=== PATIENT | female | born 1970 | race African-American/Black ===

== ENCOUNTER 2022-02-21 13:35 | Inpatient (IN) ==
[2022-02-21 14:36] LABS: Albumin 3.1 G/DL (3.4-5.0); Bilirubin,Total 0.8 MG/DL (0.20-1.00); Calcium 8.5 MG/DL (8.5-10.1); Osmolality,Calculated 287.7 MOS/KG (273-304); Potassium 4.2 MMOL/L (3.5-5.1); Total Protein 6.8 G/DL (6.4-8.2)
[2022-02-21 14:44] LABS: Basophils % 0.6 % (0.0-0.8); Eosinophils # 0.3 10*3/uL (0.0-0.87); Eosinophils % 4.4 % (0.00-10.9); Hematocrit 29.4 VOL% (35.7-47.0); Hemoglobin 8.2 GM/DL (12.0-16.0); Immature Granulocytes % 0.1 %; Immature Granulocytes Absolute 0.01 #; Lymphocytes # 2.5 10*3/uL (1.4-4.0); Lymphocytes % 35.1 % (21.3-54.2); Mean Corpuscular HGB Conc 27.9 GM/DL (32-36); Mean Corpuscular Volume 68.1 FL (87-102); Mean Platelet Volume 10.6 FL (9.6-12.0); NRBC # 0.02 10*3/uL; Neutrophils % 45.8 % (38.7-73.9); Platelet Count 299 T/CUMM (130-400); Red Blood Count 4.32 MC/CUMM (3.8-5.5); Red Cell Distribution Width 20.7 % (9.3-17.3); White Blood Count 7.1 T/CUMM (4-12)
[2022-02-21 16:15] LABS: Ovalocytes Slight; Polychromasia Slight; Target Cells Slight
[2022-02-21 16:16] LABS: Hypochromia 1+; Platelet Estimate Normal
[2022-02-21 16:17] LABS: Microcytosis 1+
[2022-02-21] MEDS ORDERED: cefTRIAXone 1,000 MG in SODIUM CHLORIDE 0.9% 100 ML IV STA (16:55)
[2022-02-21 17:52] LABS: Thyroid Stimulating Hormone 1.4 uIU/ml (0.358-3.74)
[2022-02-21] MEDS ORDERED: FUROSEMIDE 40 MG/4 ML VIAL IV STA (19:15)
[2022-02-21] MEDS ORDERED: hydrALAZINE 20 MG/1 ML VIAL IV STA (19:15)
[2022-02-21] MEDS ORDERED: MORPHINE 2 MG/1 ML SYRINGE IV PRN (19:58)
[2022-02-21] MEDS ORDERED: NICOTINE 21 MG/24 HR PATCH TRANSDERM PRN (19:58)
[2022-02-21] MEDS ORDERED: ONDANSETRON 4 MG/2 ML VIAL IV PRN (19:58)
[2022-02-21] MEDS ORDERED: guaiFENesin 200 MG/10 ML UDCUP PO PRN (20:03)
[2022-02-21] MEDS ORDERED: carvediloL 6.25 MG TABLET PO SCH (21:00)
[2022-02-21] MEDS ORDERED: LOSARTAN 25 MG TABLET PO SCH (21:00)
[2022-02-21 21:21] LABS: Bilirubin,Urine Negative (Negative); Blood, Urine Large mg/dL (Negative); Glucose,Urine (UA) Negative (Negative); Ketones,Urine Negative (Negative); Nitrite,Urine Negative (Negative); Protein,Urine Negative (Negative); RBC,Urine 192 /HPF (0-4); Squamous Epithelial Cell,Urine Occasional /HPF (0-10); Urine Appearance Slightly Hazy (Clear); Urine Color Straw (Yellow); Urine Specific Gravity 1.013 (1.001-1.035); Urine Urobilinogen < 2.0 eU/dL (<2.0)
[2022-02-21 21:39] LABS: Hepatitis B Core IgM Quant 0.13 Index; Hepatitis B Surface Ag Quant < 0.10 Index; Hepatitis B Surface Ag Result Non-Reactive (NonReactive); Hepatitis C Virus Ab Quant 0.05 Index; Hepatitis C Virus Ab Result Non-Reactive (NonReactive)
[2022-02-21] MEDS ORDERED: LEVALBUTEROL 0.63 MG/3 ML NEB RESP TX ONE (21:56)
[2022-02-21] MEDS: LEVALBUTEROL 0.31 MG/3 ML NEB RESP TX SCH (22:00)
[2022-02-21] MEDS: carvediloL 6.25 MG TABLET PO SCH (22:45)
[2022-02-21] MEDS: LOSARTAN 25 MG TABLET PO SCH (22:45)
[2022-02-21] MEDS: AZITHROMYCIN INJ 500 MG in SODIUM CHLORIDE 0.9% 250 ML IV SCH (23:55)
[2022-02-22] MEDS ORDERED: LEVALBUTEROL 0.63 MG/3 ML NEB RESP TX ONE (04:11)
[2022-02-22] MEDS: LEVALBUTEROL 0.31 MG/3 ML NEB RESP TX SCH ×6 (04:12→23:23)
[2022-02-22 05:12] LABS: % Iron Saturation 2.6 % (18-50)
[2022-02-22 05:16] LABS: Albumin 3.2 G/DL (3.4-5.0); Bilirubin,Total 0.8 MG/DL (0.20-1.00); Calcium 8.5 MG/DL (8.5-10.1); Osmolality,Calculated 285.8 MOS/KG (273-304); Potassium 3.5 MMOL/L (3.5-5.1); Risk Ratio 3.14; Total Protein 7.1 G/DL (6.4-8.2); VLDL Cholesterol 16.4 MG/DL
[2022-02-22 05:18] LABS: Folate 10.47 NG/ML (5.38-24.0)
[2022-02-22 05:27] LABS: Basophils # 0.1 10*3/uL (0.0-0.2); Basophils % 0.8 % (0.0-0.8); Eosinophils # 0.2 10*3/uL (0.0-0.87); Eosinophils % 2.6 % (0.00-10.9); Hematocrit 28.5 VOL% (35.7-47.0); Hemoglobin 8.1 GM/DL (12.0-16.0); Immature Granulocytes % 0.3 %; Immature Granulocytes Absolute 0.02 #; Lymphocytes % 27.5 % (21.3-54.2); Mean Corpuscular HGB Conc 28.4 GM/DL (32-36); Mean Corpuscular Volume 66.6 FL (87-102); Mean Platelet Volume 10.8 FL (9.6-12.0); Monocytes # 1.1 10*3/uL (0.11-0.8); Monocytes % 14.6 % (1.7-12.7); Neutrophils % 54.2 % (38.7-73.9); Platelet Count 318 T/CUMM (130-400); Red Blood Count 4.28 MC/CUMM (3.8-5.5); Red Cell Distribution Width 20.7 % (9.3-17.3); White Blood Count 7.3 T/CUMM (4-12)
[2022-02-22 05:41] LABS: Eosinophils 4 % (0-10); Hypochromia Slight; Lymphocytes 27 % (20-55); Microcytosis Slight; Platelet Estimate Adequate; Total Cells Counted 100
[2022-02-22] MEDS ORDERED: ERGOCALCIFEROL 50,000 UNIT CAPSULE PO SCH (08:30)
[2022-02-22] MEDS: FUROSEMIDE 40 MG/4 ML VIAL IV SCH ×2 (08:52→16:02)
[2022-02-22] MEDS: ASPIRIN CHEW 81 MG TABLET PO SCH (08:53)
[2022-02-22] MEDS: LOSARTAN 25 MG TABLET PO SCH ×2 (08:53→21:20)
[2022-02-22] MEDS: carvediloL 6.25 MG TABLET PO SCH ×2 (08:53→21:20)
[2022-02-22] MEDS: PANTOPRAZOLE 40 MG TABLET PO SCH (08:54)
[2022-02-22] MEDS: FERRIC GLUCONATE COMPLEX 125 MG in SODIUM CHLORIDE 0.9% 100 ML IV SCH (08:54)
[2022-02-22] MEDS ORDERED: DEXTROSE 10% 250 ML BAG IV PRN (08:55)
[2022-02-22] MEDS ORDERED: GLUCAGON 1 MG VIAL IM PRN (08:55)
[2022-02-22] MEDS ORDERED: INFLUENZA VIRUS VACCINE 0.5 ML SYRINGE IM ONE (11:06)
[2022-02-22] MEDS ORDERED: MAGNESIUM SULF RIDER 2 GM/50 ML PREMIX IV ONE (11:08)
[2022-02-22] MEDS ORDERED: POTASSIUM CHLORIDE 20 MEQ TABLET PO ONE (11:08)
[2022-02-22 11:55] LABS: Barbiturates Screen,Urine Negative (Negative); Benzodiazepines Screen,Urine Negative (Negative); Cannabinoid Screen,Urine Negative (Negative); Opiate Screen,Urine Negative (Negative); Phencyclidine Screen,Urine Negative (Negative)
[2022-02-22] MEDS ORDERED: MAGNESIUM SULF RIDER 2 GM/50 ML PREMIX IV PRN (14:53)
[2022-02-22] MEDS ORDERED: POTASSIUM CHLORIDE RIDER 10 MEQ/100 ML PREMIX IV PRN (14:53)
[2022-02-22] MEDS: AZITHROMYCIN INJ 500 MG in SODIUM CHLORIDE 0.9% 250 ML IV SCH (21:21)
[2022-02-23] MEDS: LEVALBUTEROL 0.31 MG/3 ML NEB RESP TX SCH ×7 (00:42→23:21)
[2022-02-23 05:42] LABS: Calcium 8.8 MG/DL (8.5-10.1); Osmolality,Calculated 289.7 MOS/KG (273-304); Potassium 3.9 MMOL/L (3.5-5.1)
[2022-02-23 05:48] LABS: Basophils # 0.1 10*3/uL (0.0-0.2); Basophils % 0.9 % (0.0-0.8); Bilirubin,Total 0.7 MG/DL (0.20-1.00); Calcium 8.9 MG/DL (8.5-10.1); Eosinophils # 0.4 10*3/uL (0.0-0.87); Eosinophils % 5.1 % (0.00-10.9); Hemoglobin 8.1 GM/DL (12.0-16.0); Immature Granulocytes % 0.4 %; Immature Granulocytes Absolute 0.03 #; Lymphocytes # 2.1 10*3/uL (1.4-4.0); Lymphocytes % 30.8 % (21.3-54.2); Mean Corpuscular HGB Conc 28.4 GM/DL (32-36); Mean Corpuscular Volume 66.7 FL (87-102); Mean Platelet Volume 10.7 FL (9.6-12.0); Monocytes # 1.1 10*3/uL (0.11-0.8); Monocytes % 15.3 % (1.7-12.7); Neutrophils % 47.5 % (38.7-73.9); Osmolality,Calculated 290.6 MOS/KG (273-304); Platelet Count 320 T/CUMM (130-400); Potassium 3.8 MMOL/L (3.5-5.1); Red Blood Count 4.27 MC/CUMM (3.8-5.5); Red Cell Distribution Width 20.9 % (9.3-17.3); Total Protein 6.8 G/DL (6.4-8.2); White Blood Count 6.9 T/CUMM (4-12)
[2022-02-23 05:50] LABS: Hematocrit 28.5 VOL% (35.7-47.0)
[2022-02-23] MEDS: ASPIRIN CHEW 81 MG TABLET PO SCH (08:25)
[2022-02-23] MEDS: carvediloL 6.25 MG TABLET PO SCH ×2 (08:25→22:28)
[2022-02-23] MEDS: SPIRONOLACTONE 25 MG TABLET PO SCH (08:25)
[2022-02-23] MEDS: FUROSEMIDE 40 MG/4 ML VIAL IV SCH ×2 (08:25→18:05)
[2022-02-23] MEDS: LOSARTAN 25 MG TABLET PO SCH ×2 (08:25→22:28)
[2022-02-23] MEDS: PANTOPRAZOLE 40 MG TABLET PO SCH (08:25)
[2022-02-23] MEDS: FERRIC GLUCONATE COMPLEX 125 MG in SODIUM CHLORIDE 0.9% 100 ML IV SCH (08:38)
[2022-02-23] MEDS ORDERED: diphenhydrAMINE CAP 50 MG CAPSULE PO ONE (10:30)
[2022-02-23] MEDS ORDERED: DIAZEPAM 5 MG TABLET PO ONE (10:30)
[2022-02-23] MEDS ORDERED: HEPARIN/NACL 0.9% 2 UNITS/ML 3,000 UNIT/1,500 ML BAG IV ONE (10:45)
[2022-02-23] MEDS ORDERED: fentaNYL 100 MCG/2 ML VIAL ONE (11:13)
[2022-02-23] MEDS ORDERED: MIDAZOLAM 2 MG/2 ML VIAL ONE (11:13)
[2022-02-23] MEDS ORDERED: METOPROLOL TARTRATE 5 MG/5 ML VIAL IV ONE (11:49)
[2022-02-23] MEDS: AZITHROMYCIN INJ 500 MG in SODIUM CHLORIDE 0.9% 250 ML IV SCH (22:29)
[2022-02-24] MEDS: LEVALBUTEROL 0.31 MG/3 ML NEB RESP TX SCH ×3 (03:02→11:20)
[2022-02-24 05:06] LABS: Calcium 8.9 MG/DL (8.5-10.1); Osmolality,Calculated 283.1 MOS/KG (273-304); Potassium 3.3 MMOL/L (3.5-5.1)
[2022-02-24 05:31] LABS: Basophils # 0.1 10*3/uL (0.0-0.2); Basophils % 0.7 % (0.0-0.8); Eosinophils # 0.5 10*3/uL (0.0-0.87); Eosinophils % 4.9 % (0.00-10.9); Immature Granulocytes % 0.5 %; Immature Granulocytes Absolute 0.05 #; Lymphocytes # 2.1 10*3/uL (1.4-4.0); Lymphocytes % 21.4 % (21.3-54.2); Mean Corpuscular HGB Conc 28.5 GM/DL (32-36); Mean Corpuscular Volume 67.4 FL (87-102); Mean Platelet Volume 10.7 FL (9.6-12.0); Monocytes # 1.3 10*3/uL (0.11-0.8); Monocytes % 12.9 % (1.7-12.7); NRBC # 0.05 10*3/uL; Neutrophils % 59.6 % (38.7-73.9); Platelet Count 315 T/CUMM (130-400); Red Blood Count 4.17 MC/CUMM (3.8-5.5); Red Cell Distribution Width 21.2 % (9.3-17.3); White Blood Count 9.9 T/CUMM (4-12)
[2022-02-24 05:34] LABS: Hematocrit 28.1 VOL% (35.7-47.0)
[2022-02-24] MEDS ORDERED: POTASSIUM CHLORIDE 20 MEQ TABLET PO ONE (08:47)
[2022-02-24] MEDS: LOSARTAN 25 MG TABLET PO SCH (10:35)
[2022-02-24] MEDS: ASPIRIN CHEW 81 MG TABLET PO SCH (10:36)
[2022-02-24] MEDS: SPIRONOLACTONE 25 MG TABLET PO SCH (10:36)
[2022-02-24] MEDS: PANTOPRAZOLE 40 MG TABLET PO SCH (10:36)
[2022-02-24] MEDS: FUROSEMIDE 40 MG/4 ML VIAL IV SCH (10:37)
[2022-02-24] MEDS: FERRIC GLUCONATE COMPLEX 125 MG in SODIUM CHLORIDE 0.9% 100 ML IV SCH (10:37)
[2022-02-24] MEDS: carvediloL 6.25 MG TABLET PO SCH (10:40)
[2022-02-24 16:18] VITALS: BP 128/83
[2022-03-01 08:50] LABS: Mycoplasma pneumoniae Ab, IgG POSITIVE; Mycoplasma pneumoniae Ab, IgM NEGATIVE
== END 2022-02-24 15:36 | disposition home or self-care (01) | DRG 286 ==
LOC: N.ED 13:35 → N.EDINP 19:55 → N.TELEN 02-22 16:47
PROVIDERS: ADMIT Internal Medicine; ATTEND Internal Medicine